=== PATIENT | female | born 2000 | race Caucasian/White ===

== ENCOUNTER → 2023-06-28 | Outpatient (CLI) | payer OTHER ==
[2023-06-28 15:25] LABS: Source, Urine Clean Catch
[2023-06-28 15:37] LABS: Bacteria Few /hpf; Squamous Epithelial Cells Many /hpf (Few); White Blood Cells, Urine TNTC /hpf (0-5)
[2023-06-28 15:38] LABS: Calcium Oxalate Crystals Mod /hpf; Renal Epithelial Rare /hpf (0-Rare); Transitional Epithelial Cells Rare /hpf (0-Rare)
== END | disposition home or self-care (01) ==
LOC: LAB 15:22 → LAB SHORT 15:22
PROVIDERS: Family Medicine
DX: R82.90 Unspecified abnormal findings in urine (principal)
CPT/HCPCS: 81015; 87086

== ENCOUNTER → 2023-08-05 | Outpatient (CLI) | payer OTHER ==
[2023-08-10 06:23] LABS: APTIMA MEDIA TYPE Unisex Swab; C. TRACHOMATIS BY TMA Negative (Negative); N. GONORRHOEAE BY TMA Negative (Negative); SPECIMEN SOURCE Not Provided
== END ==
LOC: LAB 17:09 → LAB SHORT 17:09
PROVIDERS: Obstetrics & Gynecology
DX: Z01.419 Encounter for gynecological examination (general) (routine) without abnormal findings (principal); Z11.3 Encounter for screening for infections with a predominantly sexual mode of transmission
CPT/HCPCS: 87491; 87591

== ENCOUNTER → 2023-12-30 | Outpatient (CLI) | payer OTHER ==
[2023-12-30 15:58] LABS: Bacterial Vaginosis PCR Negative (NEGATIVE); Candida Group, PCR NOT DETECTED (NOT DETECT); Candida glabrata-krusei, PCR DETECTED (NOT DETECT)
== END | disposition home or self-care (01) ==
LOC: LAB SHORT 12:55 → LAB 12:55
PROVIDERS: Obstetrics & Gynecology
DX: N76.0 Acute vaginitis (principal)
CPT/HCPCS: 87481; 87661; 87801

== ENCOUNTER → 2024-01-12 | Outpatient (CLI) | payer OTHER ==
[2024-01-12 13:23] LABS: Source, Urine Clean Catch
[2024-01-12 14:43] LABS: Appearance, Urine Hazy (Clear); Bilirubin, Urine Neg (Neg); Blood, Urine 2+ (Neg); Color, Urine Yellow (P-Yellow); Glucose Qualitative, Urine Neg (Neg); Ketones, Urine Neg (Neg); Leukocyte Esterase, Urine 2+ (Neg); Nitrite, Urine Neg (Neg); Protein, Urine 1+ (Neg); Urobilinogen, Urine NORM (Normal); pH, Urine 6.5 (5.0-8.0)
[2024-01-12 15:00] LABS: Bacteria Many /hpf; Calcium Oxalate Crystals Many /hpf; Squamous Epithelial Cells Few /hpf (Few)
[2024-01-12 15:47] LABS: Bacterial Vaginosis PCR Negative (NEGATIVE); Candida Group, PCR NOT DETECTED (NOT DETECT); Candida glabrata-krusei, PCR NOT DETECTED (NOT DETECT)
== END ==
LOC: LAB 13:12 → LAB SHORT 13:12
PROVIDERS: Obstetrics & Gynecology
DX: R31.21 Asymptomatic microscopic hematuria (principal); O26.899 Other specified pregnancy related conditions, unspecified trimester; Z3A.00 Weeks of gestation of pregnancy not specified
CPT/HCPCS: 81001; 87077; 87086; 87186; 87481; 87661; 87801

== ENCOUNTER 2024-06-15 09:37 | Day surgery (SDC) | payer OTHER ==
[~2024-06-15] VITALS: Ht 165.1 cm; Wt 130.8 kg
[~2024-06-15 09:37] MED LIST: ASPIR 8181 M1 PO; FERROUS SULFAT325 M1 PO; IBUP800 PO; Lactated Ringer's 1,000 ML IV ONE; PNV TABS 20-11 EACH PO
[2024-06-15] MEDS ORDERED: COLLAGEN 15001 EACH PO (10:10)
[2024-06-15] MEDS ORDERED: VITAMIN D31250 MC2 (10:12)
[2024-06-15] MEDS ORDERED: K2-D3 MAX 180-1 EACH PO (10:12)
[2024-06-15] MEDS ORDERED: Lactated Ringer's 1,000 ML IV ONE (10:22)
[2024-06-15] MEDS ORDERED: Ketorolac Tromethamine 30mg Vial ONE (11:02)
[2024-06-15] MEDS ORDERED: Rocuronium Bromide 10 MG/ML 5ML Injection IV ONE (11:02)
[2024-06-15] MEDS ORDERED: FentaNYL Citrate 50 MCG/ML 2 ML Injection ONE ×2 (11:02→12:57)
[2024-06-15] MEDS ORDERED: Dexamethasone Sod Phos 10 MG/ML 1ML VIAL ONE (11:02)
[2024-06-15] MEDS ORDERED: Sugammadex Sodium 200 MG/2ML SDV (100 MG/ML) ONE (11:02)
[2024-06-15] MEDS ORDERED: Ondansetron HCl 2 MG / ML 2ML Vial ONE ×2 (11:02→13:39)
[2024-06-15] MEDS ORDERED: propofoL 20 ML IV ONE (11:02)
[2024-06-15] MEDS ORDERED: Midazolam HCl 1MG / ML 2ML Vial ONE (11:06)
--- NOTE | 2024-06-15 11:56 | NUR ---
06/15/24 1156 Jamila Mead 0.15ML OF EPI (1MG/ML) ADDED TO 30ML OF 0.5% ROPIVACAINE (150MG/30ML) TO MAKE 0.5% ROPIVACAINE WITH EPI 1:200,000 ON FIELD.
[2024-06-15] MEDS ORDERED: Ropivacaine 0.5% HCl/Pf 5 MG/ML 20ML VIAL INJ ONE (12:00)
[2024-06-15] MEDS ORDERED: EPINEPhrine HCl 1 MG/ML 1ML Amp XX ONE (12:01)
--- NOTE | 2024-06-15 13:43 | NUR ---
06/15/24 2863 LENI MARTINES PT MOVED TO INTO RECLINER. EMESIS, JUST WHEN SHE SAT DOWN. PULLED ZOFRAN TO GIVE IV PUSH
[2024-06-15] MEDS ORDERED: OxyCODONE HCL 5 MG TAB ONE (13:51)
[2024-06-15] MEDS ORDERED: Acetaminophen 500 MG Tab ONE (13:52)
[2024-06-15 13:56] VITALS: BP 126/78
== END 2024-06-15 14:20 | disposition home or self-care (01) ==
LOC: ORSCSDS 09:37
PROVIDERS: Obstetrics & Gynecology
PROC: 0UT74ZZ Resection of Bilateral Fallopian Tubes, Percutaneous Endoscopic Approach (ICD-10-PCS; principal; 2024-06-15 10:45)
PROC: 0JPV0HZ Removal of Contraceptive Device from Upper Extremity Subcutaneous Tissue and Fascia, Open Approach (ICD-10-PCS; principal; 2024-06-15 10:45)
DX: Z30.9 Encounter for contraceptive management, unspecified (principal); J45.909 Unspecified asthma, uncomplicated; E28.2 Polycystic ovarian syndrome; E66.01 Morbid (severe) obesity due to excess calories; Z68.42 Body mass index [BMI] 45.0-49.9, adult
CPT/HCPCS: 88302; A9270; J0171; J1100; J1885; J2250; J2405; J2704; J2795; J3010; J7120